=== PATIENT | female | born 1940 | race Caucasian/White ===

== ENCOUNTER 2017-03-20 23:10 | Emergency (ER) | payer MEDICARE, OTHER ==
[2017-03-20 23:49] LABS: microscopic required? NO
[2017-03-20 23:54] LABS: UA SPECIFIC GRAVITY <=1.005 (1.005-1.035); urine erythrocyte NEGATIVE (NEGATIVE)
[2017-03-20 23:55] LABS: BASOPHIL % 0.8 % (0-2); PLATELET COUNT 234 x10^3mcL (130-400); RED CELL DISTRIBUTION WIDTH 13.1 % (11.5-14.5)
[2017-03-21 00:07] LABS: CALCIUM 8.9 mg/dL (8.5-10.1); CARBON DIOXIDE 28.2 mmol/L (21-32); CHLORIDE SERUM 99 mmol/L (98-107); CREATININE SERUM 0.9 mg/dL (0.6-1.0); GLUCOSE SERUM 113 mg/dL (74-106); POTASSIUM SERUM 4.2 mmol/L (3.5-5.1); SODIUM SERUM 134 mmol/L (136-145)
[2017-03-21 00:10] LABS: ALBUMIN 3.5 g/dL (3.4-5.0); ALKALINE PHOSPHATASE 164 U/L (46-116); ALT/SGPT 20 U/L (14-59); AST/SGOT 23 U/L (15-37); BILIRUBIN TOTAL 0.2 mg/dL (0.20-1.00)
[2017-03-21 00:11] LABS: TOTAL PROTEIN, SERUM 8.3 g/dL (6.4-8.2)
[2017-03-21 01:21] VITALS: BP 139/63
[2017-03-21] MEDS ORDERED: METOPROLOL SUCC50 M2 PO (01:23)
[2017-03-21] MEDS ORDERED: LOSARTAN POTASS50 M1 PO (01:23)
== END 2017-03-21 01:45 | disposition home or self-care (01) ==
LOC: ED 23:10
PROVIDERS: Emergency Medicine
DX: E86.0 Dehydration (principal)
CPT/HCPCS: J7030; Q0092

== ENCOUNTER 2019-06-30 16:36 | Emergency (ER) | payer MEDICARE, OTHER ==
[~2019-06-30] VITALS: Ht 160 cm; Wt 74.4 kg
[~2019-06-30 16:36] MED LIST: LOSARTAN POTASS50 M1 PO; METOPROLOL SUCC50 M2 PO
[2019-06-30 17:21] VITALS: Ht 160 cm; Wt 74.4 kg
[2019-06-30 19:06] LABS: BASOPHIL % 0.2 % (0-2); PLATELET COUNT 207 x10^3mcL (130-400); RED CELL DISTRIBUTION WIDTH 13.3 % (11.5-14.5)
[2019-06-30 19:12] LABS: CALCIUM 8.7 mg/dL (8.5-10.1); CARBON DIOXIDE 23.3 mmol/L (21-32); CHLORIDE SERUM 96 mmol/L (98-107); GLUCOSE SERUM 111 mg/dL (74-106); POTASSIUM SERUM 4.1 mmol/L (3.5-5.1); SODIUM SERUM 130 mmol/L (136-145)
[2019-06-30 19:16] LABS: ALBUMIN 3.7 g/dL (3.4-5.0); ALKALINE PHOSPHATASE 150 U/L (46-116); ALT/SGPT 20 U/L (14-59); AST/SGOT 7 U/L (15-37); BILIRUBIN TOTAL 0.52 mg/dL (0.20-1.00); LIPASE 105 IU/L (73-393)
[2019-06-30 19:17] LABS: TOTAL PROTEIN, SERUM 8.8 g/dL (6.4-8.2)
[2019-06-30 21:13] VITALS: BP 115/55
== END 2019-06-30 21:13 | disposition home or self-care (01) ==
LOC: ED 16:36
PROVIDERS: Emergency Medicine
DX: K52.9 Noninfective gastroenteritis and colitis, unspecified (principal); I10 Essential (primary) hypertension; R51 Headache
CPT/HCPCS: 87804; J2405; Q0092